=== PATIENT | male | born 1970 | race Caucasian/White ===

== ENCOUNTER 2021-12-25 13:00 | Outpatient (CLI) | payer OTHER, SELFPAY | END 2021-12-25 13:01 | disposition home or self-care (01) | LOC: SLEEP 12-26 15:09 | PROVIDERS: Family Provider Family Medicine; PCP Family Medicine; Visit Provider Family Medicine | DX: G47.10 Hypersomnia, unspecified (principal) | CPT/HCPCS: G0399 ==